=== PATIENT | female | born 1995 | race Two or more races ===

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

== ENCOUNTER 2018-03-30 08:01 | Emergency (ER) | payer MEDICAID, OTHER ==
[~2018-03-30] VITALS: Ht 162.6 cm; Wt 69.9 kg
[2018-03-30 08:22] VITALS: BP 109/66
== END 2018-03-30 08:36 | disposition home or self-care (01) ==
LOC: ER 08:01
DX: R21 Rash and other nonspecific skin eruption (principal); J45.909 Unspecified asthma, uncomplicated

== ENCOUNTER 2018-07-03 01:25 | Emergency (ER) | payer MEDICAID ==
[~2018-07-03] VITALS: Ht 162.6 cm; Wt 68.0 kg
[2018-07-03 01:33] VITALS: BP 121/75
[2018-07-03] MEDS ORDERED: ALBUTEROL SULF 2.5 MG/0.5ML(0.5%) NEB SOLN NEB ONE (01:45)
[2018-07-03] MEDS ORDERED: IPRATROPIUM BROM 0.5 MG/2.5ML INH SOL NEB ONE (01:45)
== END 2018-07-03 07:36 | disposition left against medical advice (07) ==
LOC: ER 01:29
DX: R06.02 Shortness of breath (principal); J45.909 Unspecified asthma, uncomplicated; Z53.21 Procedure and treatment not carried out due to patient leaving prior to being seen by health care provider
CPT/HCPCS: 81025; 94640; J7611; J7644

== ENCOUNTER 2020-12-31 00:58 | Inpatient (IN) | payer MEDICAID ==
[~2020-12-31] VITALS: Ht 162.6 cm; Wt 83.9 kg
[2020-12-31] MEDS ORDERED: ALBUTEROL SULF 2.5 MG/0.5ML(0.5%) NEB SOLN NEB ONE ×3 (01:00→04:45)
[2020-12-31] MEDS ORDERED: IPRATROPIUM BROM 0.5 MG/2.5ML INH SOL NEB ONE ×2 (01:00→04:45)
[2020-12-31] MEDS ORDERED: methylPREDNISolone SOD SUCC 125 MG/2 ML VL IM ONE (02:00)
[2020-12-31] MEDS ORDERED: predniSONE 20 MG TAB PO ONE (03:30)
[2020-12-31] MEDS ORDERED: PROMETHAZINE W/CODEINE 5 ML ORAL SYRUP PO ONE (04:15)
[2020-12-31] MEDS ORDERED: methylPREDNISolone SOD SUCC 125 MG/2 ML VL IV ONE (04:45)
[2020-12-31] MEDS ORDERED: guaiFENesin-DM 100/10mg/5ml SYR PO ONE (04:45)
[2020-12-31] MEDS ORDERED: SODIUM CHLORIDE 0.9% 1,000 ML IV ONE (04:45)
[2020-12-31] MEDS ORDERED: diphenhdrAMINE HCL 50 MG/1 ML VL IV ONE (04:45)
[2020-12-31] MEDS ORDERED: MAGNESIUM SULFATE 1GM/100ML 100 ML IV ONE (05:15)
[2020-12-31] MEDS ORDERED: cefTRIAXone SOD 500 MG VL IV ONE (05:15)
[2020-12-31] MEDS ORDERED: cefTRIAXone 1GM/50ML D5W 50 ML IV ONE (06:15)
[2020-12-31] MEDS ORDERED: DOCUSATE SOD 100 MG CAP PO PRN (06:30)
[2020-12-31] MEDS ORDERED: guaiFENesin-DM 100/10mg/5ml SYR PO PRN (06:30)
[2020-12-31] MEDS ORDERED: MORPHINE SULFATE INJECTION 2 MG/ML SYRG IV PRN (06:30)
[2020-12-31] MEDS ORDERED: HYDROcodone-ACET 5/325MG TAB PO PRN (06:30)
[2020-12-31] MEDS ORDERED: ONDANSETRON HCL 4 MG/2 ML VIAL IV PRN (06:30)
[2020-12-31] MEDS ORDERED: MORPHINE SULFATE 4 MG/ML SYR/VIAL IV PRN (06:30)
[2020-12-31] MEDS ORDERED: diphenhdrAMINE HCL 50 MG/1 ML VL IV PRN (06:30)
[2020-12-31] MEDS ORDERED: NITROGLYCERIN 0.4 MG SL TAB SL PRN (06:30)
[2020-12-31] MEDS ORDERED: ACETAMINOPHEN 325 MG TAB PO PRN (06:30)
[2020-12-31 07:56] LABS: Basophils # (auto) 0 10 ^3/uL (0-0.2); Basophils % (auto) 0.4 % (0.0-2.0); Eosinophils # (auto) 0.8 10 ^3/uL (0-0.8); Eosinophils % (auto) 8.7 % (0.0-7.0); Hematocrit 43.2 % (36.0-46.0); Lymphocytes # (auto) 1.7 10 ^3/uL (0.4-5.4); Lymphocytes % (auto) 17.4 % (10.0-50.0); Mean Corpuscular Hgb Conc. 34.6 g/dL (32.0-36.0); Mean Corpuscular Volume 92.4 fL (80.0-100.0); Monocytes # (auto) 0.3 10 ^3/uL (0-1.3); Monocytes % (auto) 3.2 % (0.0-12.0); Neutrophils # (auto) 6.7 10 ^3/uL (1.6-8.6); Neutrophils % (auto) 70.3 % (37.0-80.0); Nucleated Red Blood Cells % 0.1 %; Red Blood Cells 4.67 10^6/uL (4.0-5.20); Red Cell Distribution Width 12.2 % (11.8-14.3); White Blood Cell 9.6 10^3/uL (4.4-10.8)
[2020-12-31 08:09] LABS: Potassium 4.7 mmol/L (3.5-5.1)
[2020-12-31 08:16] LABS: Albumin 3.7 g/dL (3.4-5.0); Bilirubin, Total 0.5 mg/dL (0.2-1.0); Calcium 8.7 mg/dL (8.5-10.1); Total Protein 7.4 g/dL (6.4-8.2)
[2020-12-31] MEDS: IPRATROPIUM BROM 0.5 MG/2.5ML INH SOL NEB PRN ×3 (09:53→22:28)
[2020-12-31] MEDS: ALBUTEROL SULF 2.5 MG/0.5ML(0.5%) NEB SOLN NEB PRN ×3 (09:53→22:27)
[2020-12-31] MEDS ORDERED: FAMOTIDINE (10MG/ML) 2ML VL IV SCH (10:00)
[2020-12-31] MEDS: methylPREDNISolone SOD SUCC 40 MG/ML VL IV SCH (12:26)
[2020-12-31] MEDS: MULTIPLE VITAMIN TAB PO SCH (12:28)
[2020-12-31] MEDS: ASCORBIC ACID 500 MG TAB PO SCH ×2 (12:29→21:56)
[2020-12-31] MEDS: ZINC SULFATE 220mg CAP or TAB PO SCH (12:29)
[2020-12-31] MEDS: ENOXAPARIN SOD 40 MG/0.4 ML SYRINGE SC SCH (12:34)
[2020-12-31] MEDS: SODIUM CHLOR 0.9% PF (SALINE LOCK) 10ML VIAL/SYR IV SCH ×2 (14:31→21:55)
[2020-12-31] MEDS: PANTOPRAZOLE 40 MG/10 ML VIAL INJ IV SCH (14:49)
[2020-12-31 19:20] VITALS: BP 106/65
[2020-12-31 19:49] VITALS: BP 119/80
[2020-12-31 23:31] VITALS: BP 106/65
[2021-01-01] MEDS: methylPREDNISolone SOD SUCC 40 MG/ML VL IV SCH ×2 (00:11→06:16)
[2021-01-01 05:36] LABS: Basophils # (auto) 0 10 ^3/uL (0-0.2); Basophils % (auto) 0.1 % (0.0-2.0); Eosinophils # (auto) 0 10 ^3/uL (0-0.8); Hematocrit 44.5 % (36.0-46.0); Hemoglobin 15.1 g/dL (12.2-16.2); Lymphocytes # (auto) 1.1 10 ^3/uL (0.4-5.4); Lymphocytes % (auto) 6.6 % (10.0-50.0); Mean Corpuscular Hemoglobin 31.3 pg (28.0-32.0); Mean Corpuscular Hgb Conc. 33.9 g/dL (32.0-36.0); Mean Corpuscular Volume 92.2 fL (80.0-100.0); Monocytes # (auto) 0.4 10 ^3/uL (0-1.3); Monocytes % (auto) 2.1 % (0.0-12.0); Neutrophils # (auto) 15.6 10 ^3/uL (1.6-8.6); Neutrophils % (auto) 91.2 % (37.0-80.0); Nucleated Red Blood Cells % 1.5 %; Red Blood Cells 4.83 10^6/uL (4.0-5.20); Red Cell Distribution Width 11.9 % (11.8-14.3); White Blood Cell 17.1 10^3/uL (4.4-10.8)
[2021-01-01 06:16] LABS: Albumin 3.5 g/dL (3.4-5.0); Anion Gap 8 (5-15); Blood Urea Nitrogen 15 mg/dL (7-18); Calcium 8.9 mg/dL (8.5-10.1); Carbon Dioxide 20 mmol/L (21-32); Chloride 108 mmol/L (98-107); Potassium 4.4 mmol/L (3.5-5.1); Sodium 136 mmol/L (136-145)
[2021-01-01] MEDS: SODIUM CHLOR 0.9% PF (SALINE LOCK) 10ML VIAL/SYR IV SCH (06:16)
[2021-01-01 06:19] LABS: Alanine Aminotransferase 38 U/L (13-56); Aspartate Aminotransferase 24 U/L (15-37); BUN/Creatinine Ratio 19.7; GFR African American 121 mL/min; GFR Non-African American 100 mL/min; Glucose 155 mg/dL (74-106)
[2021-01-01 06:22] LABS: Alkaline Phosphatase 82 U/L (45-117); Bilirubin, Total 0.4 mg/dL (0.2-1.0); Total Protein 7.7 g/dL (6.4-8.2)
[2021-01-01 06:24] VITALS: BP 99/48
[2021-01-01] MEDS: ALBUTEROL SULF 2.5 MG/0.5ML(0.5%) NEB SOLN NEB PRN (08:19)
[2021-01-01] MEDS: IPRATROPIUM BROM 0.5 MG/2.5ML INH SOL NEB PRN (08:19)
[2021-01-01 09:00] VITALS: BP 103/75
[2021-01-01] MEDS: PANTOPRAZOLE 40 MG/10 ML VIAL INJ IV SCH (09:42)
[2021-01-01] MEDS: MULTIPLE VITAMIN TAB PO SCH (09:43)
[2021-01-01] MEDS: ZINC SULFATE 220mg CAP or TAB PO SCH (09:43)
[2021-01-01] MEDS: ASCORBIC ACID 500 MG TAB PO SCH (09:43)
[2021-01-01] MEDS: ENOXAPARIN SOD 40 MG/0.4 ML SYRINGE SC SCH (09:51)
[2021-01-01] MEDS ORDERED: PANTOPRAZOLE 40 MG/10 ML VIAL INJ IV SCH (10:00)
[2021-01-01] MEDS ORDERED: ALBUTEROL SULF 2.5 MG/0.5ML(0.5%) NEB SOLN NEB SCH (12:00)
[2021-01-01] MEDS ORDERED: IPRATROPIUM BROM 0.5 MG/2.5ML INH SOL NEB SCH (12:00)
== END 2021-01-01 13:57 | disposition left against medical advice (07) | DRG 141 ==
LOC: ER 00:59 → OVERFLOW 06:28 → WEST WING 18:09
PROVIDERS: ADMIT Nurse Practitioner Family; ATTEND Internal Medicine
DX: J45.22 Mild intermittent asthma with status asthmaticus (principal); M94.0 Chondrocostal junction syndrome [Tietze]; Z53.29 Procedure and treatment not carried out because of patient's decision for other reasons; Z20.822 Contact with and (suspected) exposure to COVID-19
CPT/HCPCS: 36415; 71046; 80053; 85025; 87426; 94640; 94644; 96361; 96365; 96367; 96372; 96375; C9113; G0378; J0696; J3490

== ENCOUNTER 2023-01-24 08:44 | Emergency (ER) | payer MEDICAID ==
[~2023-01-24] VITALS: Ht 162.6 cm; Wt 90.6 kg
[2023-01-24 08:46] VITALS: BP 117/75; PULSE 121; RESP 20; O2SAT 95
[2023-01-24] MEDS ORDERED: IPRATROPIUM BROM 0.5 MG/2.5ML INH SOL NEB ONE (09:15)
[2023-01-24] MEDS ORDERED: ALBUTEROL SULF 2.5 MG/0.5ML(0.5%) NEB SOLN NEB ONE (09:15)
[2023-01-24] MEDS ORDERED: methylPREDNISolone SOD SUCC 125 MG/2 ML VL IM ONE (09:15)
[2023-01-24] MEDS ORDERED: ALBUTEROL MEDNEB 2.5 mg/3ml NEB ONE (09:19)
== END 2023-01-24 09:38 | disposition left against medical advice (07) ==
LOC: ER 08:44
DX: J45.901 Unspecified asthma with (acute) exacerbation (principal)